=== PATIENT | female | born 1980 | race Asian ===

== ENCOUNTER 2018-06-13 15:32 | Emergency (ER) | payer OTHER ==
--- NOTE | 2018-06-13 15:43 | EDPHY ---
H & P Time Seen by Provider: 06/13/18 15:42 HPI/ROS: CHIEF COMPLAINT: Vaginal pain and hematuria, dysuria HISTORY OF PRESENT ILLNESS: This is a generally healthy 38-year-old female comes to the emergency department with 2 days of lower abdominal and vaginal pain that she describes as a spasming sensation. In addition she has had urinary urgency and dysuria. Her pain is improved when she is standing. She was seen at the [facility] yesterday where she had a urinalysis that was reportedly positive only for blood. Her urine was sent for culture. She was given a pyridium at Urgent Care, has not taken any since. She is on day 3 of her menstrual period. The timing of this. Is appropriate. The bleeding has slowed, as she expects on day 3. She has passed some clots today, not unusual for her at the end of her menses. She is monogamous, sexually active. She and her had intercourse with over a week ago--no pain. 6 days ago she completed a 10 day course of antibiotics. She was given these antibiotics for presumed strep throat. She had had a negative strep throat test but had been having fever, chills, and sore throat and had a child with strep throat. REVIEW OF SYSTEMS: A ten system review of systems was performed and is negative with the exception of the items mentioned in the HPI. Past medical history: Negative Past surgical history: Negative Social history: She is with 2 children. She is employed ast [employer] . She is and her is currently living in [place]. General Appearance: Alert. Vital signs reviewed. Heart rate 102 at triage. Afebrile. Eyes: Pupils equal and round, no conjunctival injection, no discharge. Anicteric. ENT, Mouth: Mucous membranes are moist, no oropharyngeal erythema or edema. Neck: No lymphadenopathy, supple. Respiratory: Lungs are clear to auscultation; no wheezes, rales, or rhonchi. Cardiovascular: Regular rate and rhythm, not tachycardic at the time of my evaluation.; no murmur, rub, or gallop. Gastrointestinal: Abdomen is soft and nontender, no masses or organomegaly, bowel sounds normal. Pelvic: Deferred Skin: Warm and dry, no rashes on exposed skin, normal color. Back: Nontender to palpation over the thoracolumbar spine. No CVAT. Extremities: No lower extremity edema, no calf tenderness or swelling. Neurological: Alert and oriented. Moving all four extremities easily and equally. Psychiatric: Normal affect. Constitutional: Initial Vital Signs Temperature (C) 36.7 C 06/13/18 15:46 Heart Rate 102 H 06/13/18 15:46 Respiratory Rate 18 06/13/18 15:46 Blood Pressure 125/75 H 06/13/18 15:46 O2 Sat (%) 96 06/13/18 15:46 O2 Delivery Mode Room Air Allergies/Adverse Reactions: No Known Allergies Allergy (Unverified 06/13/18 15:45) Home Medications: Medication Instructions Recorded Nitrofurantoin Macrobid [Macrobid] 100 mg PO BID #14 cap 06/13/18 Phenazopyridine HCl [Pyridium] 200 mg PO TID PRN #6 tab 06/13/18 Medical Decision Making ED Course/Re-evaluation: 38-year-old female with 2 days of signs and symptoms consistent with urinary tract infection/hemorrhagic cystitis. She was seen at urgent care yesterday and reportedly had a negative urinalysis--aside from red blood cells. She continues with significant dysuria, urgency, and hematuria. She is on her menses so the hematuria is difficult to interpret. She does not have flank or back pain. She has not had fever. She has some lower abdominal pressure and a sensation of spasming in the region of her vagina. I do not think that she has pyelonephritis or ureterolithiasis. She has no signs or symptoms of STD/PID. Departure - Departure Disposition: Home, Routine, Self-Care Clinical Impression: Urinary tract infection Qualifiers: Urinary tract infection type: acute cystitis Hematuria presence: with hematuria Qualified Code(s): N30.01 - Acute cystitis with hematuria Condition: Good Instructions: Urinary Tract Infection in Women (ED) Additional Instructions: Take the Macrobid, antibiotic, and the Pyridium, for pain with urination, as prescribed. Start both of these immediately tonight. If you develop fever, vomiting, flank or kidney pain, any new or concerning symptoms--you should be re-evaluated. Referrals: Bal Lantigua MD [[facility] [place] Primary Care Provider] - As per Instructions Prescriptions: Nitrofurantoin Macrobid [Macrobid] 100 mg PO BID #14 cap Phenazopyridine HCl [Pyridium] 200 mg PO TID PRN #6 tab PRN Reason: pain with urination
[2018-06-13 17:25] VITALS: BP 122/78
== END 2018-06-13 17:24 | disposition home or self-care (01) ==
LOC: CED 15:32 → MERGE 15:32 → CED 17:24
DX: N30.01 Acute cystitis with hematuria (principal)